=== PATIENT | female | born 1955 | race Caucasian/White ===

== ENCOUNTER 2019-07-14 17:13 | Emergency (ER) | payer OTHER ==
[~2019-07-14] VITALS: Ht 162.6 cm; Wt 70.3 kg
[2019-07-14 17:13] VITALS: BP 141/72
[2019-07-14] MEDS ORDERED: ACTICIN 5% CREA60 G1 TOP (18:35)
[2019-07-14] MEDS ORDERED: MAGIC MOUTHWASH SWISH&SPIT (18:35)
== END 2019-07-14 19:05 | disposition home or self-care (01) ==
LOC: ER 17:13
DX: B86 Scabies (principal)

== ENCOUNTER 2020-03-11 03:20 | Emergency (ER) | payer OTHER ==
[~2020-03-11] VITALS: Ht 152.4 cm; Wt 77.1 kg
[~2020-03-11 03:20] MED LIST: ACTICIN 5% CREA60 G1 TOP; MAGIC MOUTHWASH SWISH&SPIT
[2020-03-11] MEDS ORDERED: PILOCARPINE PO (03:35)
[2020-03-11] MEDS ORDERED: REQUIP 1 MG TABL1 M1 PO (03:39)
[2020-03-11] MEDS ORDERED: TRAZODONE 150150 M1 PO (03:39)
[2020-03-11] MEDS ORDERED: BACLOFEN 10MG T10 MG PO (03:39)
[2020-03-11] MEDS ORDERED: DULOXETINE HCL60 MG PO (03:40)
[2020-03-11] MEDS ORDERED: LEVO-T100 MCG PO (03:40)
[2020-03-11] MEDS ORDERED: ALPRAZOLAM1 MG PO (03:41)
[2020-03-11] MEDS ORDERED: COLACE100 MG PO (03:41)
[2020-03-11] MEDS ORDERED: ONDANSETRON ODT4 MG PO (03:41)
[2020-03-11] MEDS ORDERED: AMITRIPTYLINE H50 M2 PO (03:43)
[2020-03-11] MEDS ORDERED: OXYCONTIN60 MG PO (03:44)
[2020-03-11] MEDS ORDERED: METHOTREXATE (03:45)
[2020-03-11 06:52] VITALS: BP 114/52
== END 2020-03-11 06:52 | disposition home or self-care (01) ==
LOC: ER 03:20
DX: S82.852A Displaced trimalleolar fracture of left lower leg, initial encounter for closed fracture (principal); M06.9 Rheumatoid arthritis, unspecified; Z88.6 Allergy status to analgesic agent; X58.XXXA Exposure to other specified factors, initial encounter; Y93.89 Activity, other specified; Y92.89 Other specified places as the place of occurrence of the external cause; Y99.8 Other external cause status

== ENCOUNTER 2020-03-19 09:29 | Observation (INO) | payer OTHER ==
[~2020-03-19] VITALS: Ht 152.4 cm; Wt 77.1 kg
--- NOTE | ~2020-03-19 | O ---
[facility] [place] [address] OPERATIVE REPORT Name: ALEK WANG Room #: 150-5 [facility].#: [id number] Admission: 03/19/20 Attend Phys: Dashawn Best MD Discharge: Date of : 51 Report #: [id number] THIS REPORT FOR: cc: Sierra Hernandez,Dashawn Smith MD ~ CC: Sierra Best DATE OF SERVICE: 03/19/2020 PREOPERATIVE DIAGNOSIS: Left ankle trimalleolar fracture. POSTOPERATIVE DIAGNOSIS: Left ankle trimalleolar fracture. PROCEDURE: Left ankle open reduction and internal fixation of trimalleolar fracture. SURGEON: Dr. Dashawn Best. SOFTWARE PROGRAMMER: Regla Hawkins. ANESTHESIA: General. ESTIMATED BLOOD LOSS: Minimal. DRAINS: No drains. TOURNIQUET TIME: 30 minutes. DESCRIPTION OF PROCEDURE: The patient brought to the operating room where she was placed under general anesthesia. Once under adequate general anesthesia, her left lower extremity was prepped and draped in sterile manner. The extremity was elevated, exsanguinated, tourniquet placed 300 mmHg. A reduction maneuver was performed achieving reduction of the lateral malleolar fracture. The guidewire for the Arthrex intramedullary nail was then drilled for with an opening reamer through a distal stab wound incision utilizing fluoroscopy for guidance. The guidewire was then placed down the shaft of the fibula and the shaft reamer was then utilized and subsequently placed. The wire and drill were then removed and the intramedullary nail was then placed through 2 small stab incisions laterally. Fixation across the nail was achieved with 2 transverse locking screws. The proximal mechanism was then utilized for proximal fixation. The jig was then removed from the fibular nail. Utilizing fluoroscopy for guidance, then two 4.0 cannulated screws were placed across the medial malleolar fracture through 2 small stab incisions. Excellent fixation and alignment was achieved as verified under fluoroscopy. The wounds were then irrigated [address] [address] OPERATIVE REPORT Name: FELIPEALEKBHANU LIZARRAGA Room #: 150-5 [facility] M..#: [id number] Admission: 03/19/20 Attend Phys: Dashawn Best MD Discharge: Date of : 51 Report #: [id number] copiously and closed with 2-0 Vicryl in subcutaneous tissues and jj were used for the skin. The wounds were dressed with Xeroform, 4 x 4s, and sterile soft compressive dressing was placed. Tourniquet was let down at approximately 30 minutes. Toes were pink and warm with good capillary refill. Short leg cast was placed. There were no complications from the procedure. The patient tolerated the procedure well and went to the recovery room without incident. By: 1238 [id number] Dashawn Best MD /nt
[~2020-03-19 09:29] MED LIST changes: +ALBUTEROL2.5 MG/0.5 INH; +ALPRAZOLAM1 MG PO; +AMITRIPTYLINE H50 M2 PO; +ASA81BEC PO; +BACLOFEN 10MG T10 MG PO; +COLACE100 MG PO; +DULOXETINE HCL60 MG PO; +ESOMEPRAZOLE MA40 MG PO; +LEVO-T100 MCG PO; +LYRICA 50 MG50 MG PO; +METHOTREXATE PO; +NAPROSYN500 MG PO; +ONDANSETRON ODT4 MG PO; +OXYCONTIN60 MG PO; +PERCOCET 5-3251 EACH PO; +PILOCARPINE PO; +REQUIP 1 MG TABL1 M1 PO; +TRAZODONE 150150 M1 PO; +[UNRECOGNIZED DRUG - CODE] PO
[2020-03-19 10:22] LABS: HEMATOCRIT 32.9 % (37.0-47.0); HEMOGLOBIN 10.8 gm/dL (12.0-15.0); MCH 29.3 pg (26.0-34.0); MCHC 32.8 g/dL (28.0-37.0); MCV 89.3 fL (80.0-100.0); RBC 3.68 mil/uL (4.20-5.00); RDW 16.3 % (10.5-14.5); WBC 7.6 thou/uL (4.0-11.0)
[2020-03-19 12:41] VITALS: BP 111/60
[2020-03-19 14:00] VITALS: BP 109/56
[2020-03-19 14:22] VITALS: BP 116/58
[2020-03-19 15:17] VITALS: BP 97/48
--- NOTE | 2020-03-19 18:28 | NUR ---
PATIENT ADMITTED FROM OR, ORIF LEFT ANKLE. PATIENT ARRIVED ON THE UNIT AROUND 1400, SHE WAS VERY SLEEPY. PATIENT RECEIVED FENTANYL PRIOR TO ARRIVING ON THE UNIT IN OR. PATIENT HAS CAST TO LEFT LEG. NO PAIN WITH LEFT LEG, BUT C/O PAIN WITH BACK AREA. MORPHINE 5 MG IV GIVEN, PATIENT SLEEPING. PATIENT WOKE UP AND WAS ASKING FOR WATER, HER BELONGINGS, AND HER PHONE. PATIENT CONTINUE TO C/O PAIN TO BACK AREA, THIS RN GAVE OXYCODONE 7.5 MG X 2. THIS RN SPOKE WITH DAVID/SISTER AND GAVE HER UPDATE ON PATIENT STATUS. PATIENT IS OBSERVATION. WILL CONTINUE TO MONITOR.
[2020-03-19 19:22] VITALS: BP 108/54
[2020-03-20 00:15] VITALS: BP 101/59
--- NOTE | 2020-03-20 04:45 | NUR ---
ASSESSED AT START OF SHIFT PT A&OX4 FOR THIS SHIFT. EVNING MEDS GIVEN AND HOME MEDS RESTARTED. C/O PAIN IN RT LEG AND BACK PAIN MEDS GIVEN. UROSTOMY IN PLACE. FALL PREC IN PLACE AND WILL CONT TO MONITOR TILL EOS.
[2020-03-20 05:11] VITALS: BP 107/58
[2020-03-20 06:29] LABS: HEMATOCRIT 29.3 % (37.0-47.0); HEMOGLOBIN 9.5 gm/dL (12.0-15.0)
[2020-03-20 06:42] LABS: POTASSIUM 4.1 mmol/L (3.5-5.1)
[2020-03-20 07:29] VITALS: BP 121/64
--- NOTE | 2020-03-20 12:20 | NUR ---
PT ADMITTED RELATED TO LT ANKLE ORIF S/P TRIMALLEOLAR FX 03/11. CM REVIEWED CHART AND SPOKE WITH CARE TEAM. CM CALLED AND SPOKE WITH PT THIS DAY. PT APPEARED TO BE A&O X4. CM ROLE INTRODUCED. PT INDICATED SHE LIVES ALONE IN AN APARTMENT WITH NO STEPS. PT INDICATED SHE HAD USED A WC TO ASSIST WITH MOBILITY RN LIAISON. PT INDICATED SHE HAD HCBS THROUGH MEDICAID 4.5 HRS 5 DAYS A WEEK. PT INDICATED SHE PLANS TO RETURN HOME TODAY. PT INDICATED HER DTR CHECKS ON HER DAILY AFTER WOOR AND THAT ONE OF HER NEPHEWS IS GOING TO STAY WITH HER UPON DC. PT WOULD LIKE HH UPON DC. PT RESIDES IN [place]. REFERRAL SENT TO [facility]. AWAITING RESPONSE. CM TO FOLLOW INDICATED WITH ANTICPATED DC HOME THIS DAY.
[2020-03-20 13:10] VITALS: BP 121/64
[2020-03-20 13:11] VITALS: BP 121/64
--- NOTE | 2020-03-20 13:14 | NUR ---
FAXED REFERRAL TO [facility] SPOKE WITH ALAN IN INTAKE SHE RECEIVED REFERRAL AND CAN ACCEPT.
[2020-03-20 13:17] VITALS: BP 121/64
--- NOTE | 2020-03-20 14:36 | NUR ---
[facility] CAN ACCEPT PT. PT IS MEDICALLY STABLE TO DC HOME THIS DAY WIHT HH PT. NO OTHER CM INTERVENTION INDICATED. PT'S NEPHEWS TO TRANSPORT HOME. CASE CLOSED.
--- NOTE | 2020-03-20 15:20 | NUR ---
FAXED DC ORDERSS/SUMMARY TO [facility] SPOKE WITH ALAN IN INTAKE SHE RECEIVED ORDERS AND WILL NOTIFY PT TIME OF VISITS.
--- NOTE | 2020-03-20 15:47 | NUR ---
ASSUMED CARE OF THE PT AT 0700. PT IS UP WITH ASSIST X1 WITH WALKER AND GAIT BELT. PAIN CONTROLLED BY PAIN MEDS, SEE EMAR. L ANKLE CAST INTACT, CAP REFILL LESS THAN 5 SECONDS. PT WILL BE D/C'ING TO HOME WITH HH. R UPPERARM AND R FOREARM REMOVED. SCD ON R LEG. PT CAN TURN SELF. CALL LIGHT WITHIN REACH, BED IN THE LOWEST POSITION AND BED/ CHAIR ALARM ON. PT SIGNED D/C PAPERWORK AND RECEIVED RX'S. PT D/C'D TO HOME WITH ALL BELONGINGS
== END 2020-03-20 15:25 | disposition home health service (06) ==
LOC: OR 09:29 → TBA 09:34 → 4S 13:26 → OR 13:27 → 4S 03-20 15:25
PROVIDERS: ADMIT Orthopaedic Surgery Foot and Ankle Surgery
DX: S82.852A Displaced trimalleolar fracture of left lower leg, initial encounter for closed fracture (principal); F32.9 Major depressive disorder, single episode, unspecified; F41.9 Anxiety disorder, unspecified; G89.29 Other chronic pain; E03.9 Hypothyroidism, unspecified; K21.9 Gastro-esophageal reflux disease without esophagitis; Z86.73 Personal history of transient ischemic attack (TIA), and cerebral infarction without residual deficits; M19.90 Unspecified osteoarthritis, unspecified site; M06.9 Rheumatoid arthritis, unspecified; M79.7 Fibromyalgia; X58.XXXA Exposure to other specified factors, initial encounter; Y93.89 Activity, other specified; Y92.89 Other specified places as the place of occurrence of the external cause; Y99.8 Other external cause status
CPT/HCPCS: 50010; 50101; 50386; 51412; 56524; 56525; 57091; 57180; 5727; 57806; 57807; 57808; 57809; 57888; 57889; 62110; 62900; 70005

== ENCOUNTER 2020-04-22 18:42 | Inpatient (IN) | payer OTHER ==
[~2020-04-22] VITALS: Ht 152.4 cm; Wt 79.5 kg
[2020-04-22 18:43] VITALS: BP 130/56
[2020-04-22 19:04] LABS: ABSOLUTE NEUTROPHILS 11.1 thou/uL (1.4-8.2); BASOPHILS 0.2 % (0.0-2.0); EOSINOPHILS 0.5 % (0.0-3.0); HEMATOCRIT 34.7 % (37.0-47.0); HEMOGLOBIN 11.3 gm/dL (12.0-15.0); LYMPHOCYTES 5.6 % (24.0-44.0); MCH 28.3 pg (26.0-34.0); MCHC 32.5 g/dL (28.0-37.0); MONOCYTES 10.8 % (1.0-8.0); POLYS 82.9 % (36.0-66.0); RBC 3.99 mil/uL (4.20-5.00); RDW 16.7 % (10.5-14.5); WBC 13.4 thou/uL (4.0-11.0)
[2020-04-22 19:14] LABS: ANION GAP 4 mmol/L (7-16); BUN 32 mg/dL (7-18); CALCIUM 10.1 mg/dL (8.5-10.1); CHLORIDE 105 mmol/L (98-107); CO2 29 mmol/L (21-32); CREATININE 1.1 mg/dL (0.6-1.0); GLUCOSE 107 mg/dL (74-106); POTASSIUM 5.9 mmol/L (3.5-5.1); SODIUM 138 mmol/L (136-145)
[2020-04-22 19:23] LABS: PLATELET COUNT 142 thou/uL (150-400)
[2020-04-22 19:25] LABS: ALBUMIN 3.3 g/dL (3.4-5.0); SGOT 53 U/L (15-37); SGPT 34 U/L (30-65); TOTAL BILIRUBIN 0.8 mg/dL (0.2-1.0); TOTAL PROTEIN 7.6 g/dL (6.4-8.2); TROPONIN-I <0.06 ng/mL (<0.06)
[2020-04-22 19:28] LABS: URINE BILIRUBIN NEGATIVE (Negative); URINE BLOOD TRACE (Negative); URINE CLARITY CLEAR; URINE COLOR YELLOW; URINE GLUCOSE-RANDOM* NEGATIVE (Negative); URINE KETONES NEGATIVE (Negative); URINE NITRITE-REFLEX NEGATIVE (Negative); URINE PROTEIN (DIPSTICK) TRACE (Negative); URINE UROBILINOGEN 0.2 E.U./dl (0.2-1.0)
[2020-04-22 19:34] LABS: URINE LEUKOCYTES-REFLEX 1+ (Negative)
[2020-04-22 19:38] LABS: AMP/METHAMP Negative (Negative); BARBITURATES Negative (Negative); BENZODIAZEPINES POSITIVE (Negative); COCAINE Negative (Negative); METHADONE Negative (Negative); OPIATES POSITIVE (Negative); PCP Negative (Negative)
[2020-04-22 19:38] LABS: BE(vivo) -0.3 mmol/L (-2 to +3); PO2 93.2 mmHg (80.0-100.0); sO2 95.7 % (92.0-98.0)
[2020-04-22 19:39] LABS: pH 7.249 (7.360-7.450)
[2020-04-22 19:40] LABS: PCO2 65.4 mmHg (35.0-45.0)
[2020-04-22 19:45] LABS: CASTS None Seen /LPF (None Seen); CRYSTALS None Seen /LPF (None Seen); SQUAMOUS 0-3 Few /LPF (0-3); URINE WBC-REFLEX 6-15 Few /HPF (0-5)
[2020-04-22 19:46] LABS: URINE RBC 0-2 Rare /HPF (0-2)
[2020-04-22 19:52] LABS: INR 1.1; PROTIME 11.4 Seconds (9.3-11.4)
[2020-04-22 21:03] VITALS: BP 128/60
[2020-04-22 21:47] VITALS: BP 143/83
[2020-04-22 22:02] VITALS: BP 113/91
[2020-04-22 22:32] VITALS: BP 112/64
[2020-04-22 22:47] VITALS: BP 99/63
[2020-04-22 23:12] LABS: BE(vivo) -4.4 mmol/L (-2 to +3); HCO3 22.7 mmol/L (22.0-26.0); PCO2 51.5 mmHg (35.0-45.0); PO2 71.7 mmHg (80.0-100.0)
[2020-04-22 23:14] LABS: pH 7.263 (7.360-7.450)
[2020-04-23] VITALS (28 sets, daily range): BP systolic 101–170; BP diastolic 44–86
[2020-04-23 01:23] LABS: BE(vivo) 0.1 mmol/L (-2 to +3); PCO2 54.9 mmHg (35.0-45.0); PO2 94.4 mmHg (80.0-100.0); pH 7.309 (7.360-7.450); sO2 96.5 % (92.0-98.0)
[2020-04-23 05:28] LABS: HEMOGLOBIN 9.8 gm/dL (12.0-15.0); MCH 27.8 pg (26.0-34.0); MCHC 31.5 g/dL (28.0-37.0); MCV 88.4 fL (80.0-100.0); RBC 3.51 mil/uL (4.20-5.00); WBC 9.3 thou/uL (4.0-11.0)
[2020-04-23 05:42] LABS: CALCIUM 8.4 mg/dL (8.5-10.1); MAGNESIUM 1.6 mg/dL (1.8-2.4)
[2020-04-23 05:45] LABS: POTASSIUM 4.7 mmol/L (3.5-5.1)
--- NOTE | 2020-04-23 06:51 | NUR ---
PT PROGRESSING TOWARD GOALS. REMAINS ON BIPAP. ABG IMPROVED. DR DEMPSEY CALLED RESULTS DURING NOC. PT MORE ALERT, ORIENTED. TEMP NORMAL 97.9 AX. IVF INFUSING. GOOD UO PER CONDUIT. SPOKE WITH BOTH PATIENTS SISTER AND DAUGHTER. CONT PLAN OF CARE. SEE [facility] FOR ASSESSMENT
--- NOTE | 2020-04-23 08:38 | EKG ---
[facility] [place] [address] ELECTROCARDIOGRAM REPORT Name: ALEK WANG Room #: 236-P ADM IN M.R.#: [id number] Admission: 04/22/20 Attend Phys: Shin Shearer MD Discharge: Date of : 51 Report #: [id number] THIS REPORT FOR: cc: Sierra Hernandez Christine L. DO Lundgren, Craig H. MD [facility] ~ THIS REPORT FOR: //name// [facility] ED Test Date: 2020-04-22 Test Time: 19:02:23 Pat Name: ALEK WANG Department: Room: 236 Gender: F Job Site Supervisor: lito : 1955 Requested By: Fidelina Pond Order Number: [id number] MD: Korey Willoughby Measurements Intervals [place] Rate: 101 P: 45 AL: 168 QRS: 28 QRSD: 98 T: 30 QT: 353 QTc: 458 Interpretive Statements Sinus tachycardia Otherwise normal tracing No previous ECG available for comparison Electronically Signed On 04-23-2020 8:36:49 CDT by Korey Willoughby [email or web address] <ELECTRONICALLY SIGNED> By: Korey Willoughby MD, [facility] 04/23/20 0836 [id number] Korey Willoughby MD, [facility] /EPI
--- NOTE | 2020-04-23 09:30 | NUR ---
chart review. cm consult. unable to visit with tyesha at this time rt on bipap. covid pending. per chart pt was here in february with ankle fx with orif. lives in apartment alone. daughter and nephew check on her. has wheel chair. [facility] in past. received community based service from [place] medicaid. will cont following as needed for dc needs.
--- NOTE | 2020-04-23 10:26 | NUR ---
Pt reporting pain in left hand and back pain. Asking for pain medication. States "I don't want to go through withdrawel again". Call placed to Dr Blair to request medications. Dr Blair will order medications.
[2020-04-23 10:34] LABS: INR 1.1; PROTIME 11.4 Seconds (9.3-11.4)
--- NOTE | 2020-04-23 15:30 | NUR ---
Call placed to pt's sister Carlee (contact list) to inform of negative COVID results per her request to be notified when test result came back. Sister voicing concern that the patient is receiving inadequate amount of pain medication to keep her from going through withdrawel (pt has chronic pain issues). Sister wants MD to be aware of previous issue of withdrawel.
--- NOTE | 2020-04-23 19:00 | NUR ---
Pt continues to report pain left hand/wrist. Left wrist near base of thumb is swollen and painful. No redness or bruising. Pt unaware of any injury. Dr Phillips was in ICU and informed and ordered xray of left wrist. Pt started on regular diet but reported difficulty eating due to dry mouth syndrome and lack of her usual medications. Minimal pain relief obtained today with medication. Remains tachycardic. Positive blood culture was reported to Dr Hsu. Report to RN assuming care. Continue enhanced precautions per Dr Hsu.
[2020-04-24] VITALS (13 sets, daily range): BP systolic 134–157; BP diastolic 72–95
--- NOTE | 2020-04-24 09:59 | NUR ---
Spoke with Physician regarding patient pain management. Family and patient requesting pain management consult. Reviewed medications that patient has ordered and home dose with provider. Passed along information of family request for the patient to not have Fentanyl. Physician stated he will call and speak with family. IVF Dc'd per provider orders.
--- NOTE | 2020-04-24 10:05 | NUR ---
PT ON PHONE TO FAMILY, SHE REQUESTED ITEMS FROM HOME FOR HER ILEOCONDUIT CARE. PT AND FAMILY MEMBER REFUSING TO HAVE FENTANYL PATCH EVEN THOUGH SLOW RELEASE OF PAIN MEDICATION THAT WILL NOT SIGNIFICANTLY AFFECT BP. IV PATCH PLACED, THEN REMOVED WITHIN 10 SECONDS. PT ANXIOUS, TACHYPNEIC.
--- NOTE | 2020-04-24 11:25 | NUR ---
TRANSFERRED TO TELE #361 PER BED WITH REPORT CLERK, WITH ASSISTANCE OF PACHECO AND RN.
--- NOTE | 2020-04-24 13:43 | NUR ---
1210 PT TRANSFERED FROM ICU, TO 361, PT ALERT AND ORIENTED X4, DENIES ANY CHEST PAIN, NAUSEA AND VOMITING. PT COMPLAINS OF LEFT THUMB AND LFT ANKLE PAIN PT IS ON TELE, ILEUL CONDUIT IN PLACE , INTACT AND PATENT. PT DENIES ANY NEEDS MICHAEL, CALL LIGHT AND TABLE IN REACH. BED AT LOWEST LEVEL WITH ALARM ON.
--- NOTE | 2020-04-24 15:49 | NUR ---
CHIO reviewed chart and spoke with attending physician. Pt transferred to from ICU earlier today. Pt remains in Enhanced Isolation. Pt's first test was negative. Repeat test is pending. SW has attempted to reach pt in her room via phone. Pt is currently on service with [facility] and has Medicaid HCBS in home care 4.5 hrs/day for 5 days/week. Will need therapy evals when pt is able to participate. CHIO is following to assist as needed with discharge planning.
--- NOTE | 2020-04-24 23:59 | NUR ---
DR. CECI BROWN ROUNDED ON PT THIS EVENING. ALL COVID ISOLATION HAS BEEN DC'D. FOLLOWING POC.
[2020-04-25 04:06] VITALS: BP 110/62
--- NOTE | 2020-04-25 05:59 | NUR ---
ASSUMED CARE FOR PT AT 1845. PT HAD HIGH LEVEL OF ANXIETY WHICH STEMS FROM NOT HAVING CORRECT MEDICATIONS THAT SHE TAKES AT HOME. AFTER GETTING ALL IN ORDER AND GETTING PATIENTS PAIN UNDER CONTROL HER ANXIETY DECREASED GREATLY. PT ALSO REQUESTED TO RESTART PILOCARPINE FOR XEROSTOMIA. POC WITH IVPB ANTIBIOTICS. PT STILL ON 6L NC AND RECEIVING BREATHING TX. PT STATES THAT SHE WANTS TO GET UP TO THE CHAIR TODAY.
[2020-04-25 07:37] VITALS: BP 131/70
[2020-04-25 08:03] VITALS: BP 131/70
[2020-04-25 11:15] VITALS: BP 142/86
--- NOTE | 2020-04-25 12:54 | NUR ---
ASSUMED CARE AT 0700, PT ALERT AND ORIENTED X4, ANXIOUS AT TIMES. PT DENIES CHEST PAIN, NAUSEA AND VOMITING. COMPLAINS OF LEFT THUMB PAIN WHICH SHE IS BEING MEDICATED FOR PER ORDER. PT IS ON 4L OF OXYGEN, AND O2 SAT IS WNL. NO SIGNS OF DISTRESS NOTED. PT GOT UP TO CHAIR FOR A COUPLE OF HOURS. CALL LIGHT AND TABLE IN REACH. BED AT LOWEST LEVEL WITH ALARM ON. THUMB STABILIZER IN PLACE.
--- NOTE | 2020-04-25 14:18 | NUR ---
CHIO reviewed chart and spoke with nursing and attending physician. Pt is slowly progressing towards goals for discharge. Therapy ordered to evaluate pt for discharge needs. SW attempted to call pt in room. No answer. CHIO spoke with pt's sister, Carlee, regarding discharge plan. Lengthy discussion regarding discharge plan. Pt's family is able to provide 24 hour care at home if needed. Carlee states that attending physician mentioned 5N acute rehab. SW explained need for rehab dx and tolerance for 3 hours of therapy. Pt's cell phone number ([phone]) provided to SW. SW spoke with pt via phone. Pt states she would prefer to go home but will see how she does with therapy. Pt is currently on service with [facility]. CHIO is following to assist as needed with discharge planning.
[2020-04-25 16:59] VITALS: BP 125/78
--- NOTE | 2020-04-25 18:10 | NUR ---
OSTOMY NURSE- ASKED TO SEE PATIENT FOR PROBLEMS WITH UROSTOMY POUCH ADHERENCE & LEAKING. 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 SHE REPORTS PROBLEMS RECENTLY WITH WEIGHT GAIN, MORE ROUNDED ABDOMEN AND POUCH NOT ADHERING WELL. SHE USES AND HAS SOME OF HER OWN ALESHA 8487 PRE-CUT 1 3/8 INCH CONVEX UROSTOMY POUCHES. SHE RECENTLY STARTED USING MARATHON SKIN PREP AND A SMALL PIECE OF THIN HYDROCOLLOID LATERAL TO HER STOMA, AT THE SUGGESTION OF HER HOME HEALTH NURSE - WITH IMPROVEMENT IN POUCH ADHERENCE. SHE RELUCTANTLY AGREED TO CHANGE POUCH NOW, SHE TYPICALLY CHANGES IN THE MORNING. POUCH LAST CHANGED OVER A WEEK AGO. POUCH WAS STILL INTACT, BUT STARTING TO LEAK UNDER BARRIER ALONG LATERAL AND INFERIOR BORDER. STOMA PINK, MOIST, PROTRUDES SLIGHTLY AND APPROXIMATELY 1 1/8 INCHES. PERISTOMAL SKIN COMPLETELY INTACT AND PINK. ASSISTED PATIENT TO CLEANSE WITH PLAIN WATER - SHE USES IVORY SOAP & WATER AT HOME, STRONGLY DISCOURAGED DUE TO ALKALINE NATURE OF SOAP AND LEAVING FILM PREVENTING ADHERENCE. APPLIED MARATHON AND THIN HYDROCOLLOID. REINFORCED HOLDING PRESSURE OVER POUCH AFTER APPLYING. POUCH CONNECTED TO BEDSIDE DRAINAGE. PATIENT HAS ADDITIONAL SUPPLIES AT BEDSIDE. NURSES TO ASSIST WITH ROUTINE OSTOMY CARE, OSTOMY NURSE TO FOLLOW-UP PRN.
[2020-04-25 19:25] VITALS: BP 152/82
--- NOTE | 2020-04-25 23:49 | NUR ---
PT RESTING IN LOUNGE CHAIR. TWO PERSON ASSIST BACK TO BED WITH BOOT ON LLE. PT STATING SHE WISHES TO RETURN HOME TO COMFORT OF OWN CHAIR TO SLEEP IN. 02 PER NC 4L. COUGH, LUNGS WITH WHEEZE. IVF INTACT. PT REQUESTED SNACK AND PROVIDED. PT NOT WEARING BRACE ON THUMB L. PT DISCUSSED CHANGE IN PAIN MEDS TODAY AND HOPING FOR INCREASED RELIEF FOR CHRONIC BACK AND ANKLE PAIN. PT RECEIVED LOVENOX, BED ALARM ON.
[2020-04-26 04:20] VITALS: BP 109/58
[2020-04-26 07:59] VITALS: BP 149/79
--- NOTE | 2020-04-26 11:35 | NUR ---
Patient refused to walk with Respiratory stating she had a broken ankle. Was able or willing to try. Spoke with GÓMEZ Angulo.
--- NOTE | 2020-04-26 11:52 | HC ---
[facility] [place] [address] CONSULTATION Name: ALEK WANG Room #: 361-P ADM IN M.R.#: [id number] Admission: 04/22/20 Attend Phys: Nicholas Blair Discharge: Date of : 53 Report #: [id number] THIS REPORT FOR: cc: Sierra Hernandez,Rob Ivy MD ~ CC: Sierra Blair HISTORY OF PRESENT ILLNESS: This 64-year-old female is admitted with multiple medical problems and I believe has a clinical diagnosis of sepsis with positive blood cultures. She has a number of general medical problems. I am asked to see her with regard to the left wrist, hand and thumb swelling and pain. Upon my evaluation, her history is somewhat difficult and confusing. At first, she states she has only had hand symptoms since she was admitted to the hospital several days ago. On further discussion, she notes she has had chronic problems with the left knee and at rest and has been seen by multiple physicians including proof reader in the past; however, she states she has not had x-rays nor any other significant diagnostic studies regarding these chronic symptoms. She notes that she had an ankle fracture in the past few months and then was using a walker for balance, which seemed to aggravate the left wrist and hand discomfort. Those symptoms have advanced over the past week or two and at the time of her initial hospital admission, she states, however, that her hand and wrist symptoms have actually improved somewhat over the past couple of days. Objectively, she is somewhat frail and slender. She seems to be generally comfortable, resting, in bed. She does, however, complain of ongoing left hand and wrist pain. Objectively, there is mild generalized edema and some tenderness about the radial aspect of the left wrist and thumb. The thumb is slightly shortened and mildly angulated consistent with some bony disruption at the CMC joint. She has satisfactory movement of the other digits with some generalized edema. The findings are not so severe as to suggest a major abscess. It is difficult to rule out infection versus aggressive synovitis in this area of the hand, however. X-rays of the left hand reveal rather striking a loss of bone involving the trapezium trapezoid and base of the first metacarpal as well as the distal pole of the scaphoid. These findings certainly suggest a rather chronic osteolysis process. They actually have the appearance of previous surgical resection with the patient assures me that she has never had any surgery involving the hand. Findings would suggest there has been some gradual chronic osteolysis process. I have discussed this at some length with the patient. It is possible that there may be a deep soft tissue infection. I think further evaluation with MRI study would be helpful in assessing for possible abscess and fluid collection. At this point, we will try to protect the wrist and hand in a simple thumb spica splint. She notes she was already fitted for a splint 1-2 weeks [place] [address] CONSULTATION Name: ALEK WANG Room #: 361-P [facility] IN M.R.#: [id number] Admission: 04/22/20 Attend Phys: Nicholas Blair Discharge: Date of : 51 Report #: [id number] was at home, which suggests this is a more chronic problem. We do not have those splints available, so we will try to get a new simple thumb spica splint now for comfort. We will see what the MRI study shows. I have also asked for an evaluation opinion by my partner, ____. <ELECTRONICALLY SIGNED> By: Rob Paiz MD 04/26/20 1152 0832 0848 Rob Paiz MD /nt
[2020-04-26 12:10] VITALS: BP 129/79
[2020-04-26 15:44] VITALS: BP 129/79
--- NOTE | 2020-04-26 16:21 | NUR ---
CHIO reviewed chart and spoke with nursing and attending physician. Pt is progressing towards goals for discharge. 5N did evaluate pt. Pt is too high level for admission to inpt acute rehab. Recommendation made for pt to return home with services. CHIO spoke with pt via phone to discuss discharge plan. Pt states she refused to do the walking exercise with RT to determine home O2 needs. SW explained need for study to determine her O2 requirements while at rest and when ambulating. Pt verbalized understanding. CHIO discussed DME companies with pt. No preference voiced. CHIO confirmed pt's home address and phone number. Pt agreeable with plan to discharge home tomorrow with services. CHIO spoke with pt's sister, Carlee, to discuss discharge plan as well. Pt's niece will provide transportation home tomorrow. Carlee is agreeable with discharge plan. Carlee states she spoke with Patient Experience Coordinator to discuss her concerns. environmental planner to fax info to [facility] for review. CHIO notified liaison of weekend discharge. CHIO faxed referral and room air sat of 87% to [facility] for review. Pt will not need a rest/exercise oximetry at this time. CHIO notified [facility] liaison of new Home O2 referral. Portable tank to be delivered to pt's room today. CHIO updated pt's nurse and attending physician. Will need a script for home O2. Script will need to be faxed to [facility] when available. Finalized discharge orders/summary will need to be faxed to and [facility] when available. Contact info for [facility] and placed in pt's discharge summary. No further CHIO needs identified at this time, but is available to assist should needs arise. [facility] -- [facility]--
[2020-04-26 16:33] VITALS: BP 134/81
--- NOTE | 2020-04-26 16:54 | NUR ---
ASSUMED CARE OF PT AT 0700. PT AOX4 MILD ANXIETY, STILL REQUIRING O2. UP W/ 1 ASSIST. OCCASIONAL COUGH. IV ABX INFUSING PER ORDER. DOWNGRADED TO MED/SURG. O2 TANK DELIVERED TO ROOM. ANTICIPATE D/C HOME TOMORROW.
[2020-04-26 19:16] VITALS: BP 142/64
--- NOTE | 2020-04-26 19:48 | NUR ---
PT RETURNED TO BED FROM [facility] TRANSFERED SELF. NWB LLE, HAS BOOT R/T PREVIOUS ANKLE SURGERY. O2 PER NC, LUNGS WITH CRACKLES, SOA WITH TALKING AND EXERTION. COUGH NON PRODUCTIVE. PT HAD BM. PT INFORMED OF NEW ANTIBIOTIC ORDER. PT DIET CHANGED TO DAY TO PUREED. ILEOCONDUIT TO DD INTACT. PT VERBALIZING DESIRE TO DC IN AM. PT VERBALIZING INCREASE IN ANXIETY. PT CALLS FOR ASSISTANCE FOR RESTROOM AND TRANSFERS.
--- NOTE | 2020-04-26 19:54 | NUR ---
PATIENT SEEN BY DR. REAL THIS DATE FOR REHAB CONSULT. PATIENT HAS ALREADY BE DISCHAGED FROM PHYSICAL THERAPY. PATIENT DOES NOT MEET CRITERIA FOR ACUTE REHAB STAY. ANTICIPATE PATIENT WILL D/C TO HOME. EXPLOSIVE SPECIALIST INFORMED. THANK YOU FOR THIS REFERRAL.
--- NOTE | 2020-04-27 01:15 | NUR ---
PT CHANGED HER ILEOCONDUIT DRAINAGE BAG, SHE STATED IT WAS LEAKING.
[2020-04-27 04:24] VITALS: BP 118/50
[2020-04-27 07:23] VITALS: BP 139/68
[2020-04-27 16:07] VITALS: BP 155/83
--- NOTE | 2020-04-27 18:44 | NUR ---
NO NEW CHANGES. REMAINS ON 3L NC. ANXIOUS. NO D/C PLANS TODAY DUE TO WORSENING XRAY.
[2020-04-27 20:00] VITALS: BP 152/94
[2020-04-27 20:08] LABS: ADENOVIRUS Negative (Negative); INFLUENZA A Negative (Negative); INFLUENZA B Negative (Negative); METAPNEUMOVIRUS Negative (Negative); PARAINFLUENZA 1 Negative (Negative); PARAINFLUENZA 2 Negative (Negative); PARAINFLUENZA 3 Negative (Negative); RHINOVIRUS Negative (Negative); RSV A Negative (Negative)
--- NOTE | 2020-04-27 23:41 | NUR ---
ASSESSMENT: PT REMAIN ALERT AND ORIENT TIMES FOUR. UP IN CHAIR AT THE CHANGE OF SHIFT. PIVOT TO BED WITH SBA. PT IS FEBRILE. WITH TEMP OF 100.3. OXYCONDONE GIVEN FOR PAIN IN BACK AND LEFT ANKLE. IJ ON LEFT PATENT AND SALINE LOCKED. ALPRAZOLAM BENZONATE AND GUAIFENESIN GIVEN EARLY IN THE SHIFT. PT WILL BE TRANSFERING TO ROOM 460. REPORT GIVEN TO DIRK MAGAÑA. PER MONITOR. CONTINUOUS PULSE OX ORDERED. SPUTUM PENDING. WILL CONTINUE TO MONITOR.
[2020-04-28 00:16] VITALS: BP 137/70
--- NOTE | 2020-04-28 00:37 | NUR ---
PATIENT WAS TRANSFERRED FROM ROOM 361 AT 2359 VIA BED WITH TWO NURSES. REPORT RECEIVED AND PATIENT ORIENTED TO ROOM. RT GAVE TREATMENT AND WILL PUT PATIENT ON CONTINUOUS PULSE OX. RESTING QUIETLY. TELEMETRY PATIENT. WILL MONITOR.
[2020-04-28 05:05] VITALS: BP 141/84
--- NOTE | 2020-04-28 05:17 | NUR ---
PATIENT ALERT AND ORIENTED X4. MEDICATED FOR PAIN X1 AT TIME OF NOTE AND COUGH MEDICATION. 02NC WITH SOME SOA. RT TREATMENTS. MONITORING TEMPERATURE. PATIENT WORKING ON SPUTUM SAMPLE. POSSIBLE D/C PENDING TEMP. TELE WITH TACHY. RESTING QUIETLY. WILL MONITOR.
[2020-04-28 07:23] VITALS: BP 120/74
[2020-04-28 15:25] VITALS: BP 138/58
--- NOTE | 2020-04-28 17:29 | NUR ---
PT ASSESSED AT START OF SHIFT. STATES SHE'S MUCH BETTER AND WANTING TO GO HOME. HAS CHRONIC BACK PAIN AND NEEDS TO CHANGE FROM BED TO CHAIR SEVERAL TIMES DAILY. FAMILY BROUGHT PT'S W/C FROM HOME WHICH HAS HELPED. NOT ABLE TO FIND MUCH THAT SHE CAN EAT W/O IT BOTHERING HER MOUTH. SISTER CALLED TO CHECK ON PT AND STATED SHE HAS ARRANGED FOR CONTINOUS HOME CARE PROVIDED BY FAMILY SO THAT PT MAY GO HOME INSTEAD OF REHAB.
[2020-04-28 19:00] VITALS: BP 152/79
--- NOTE | 2020-04-29 04:31 | NUR ---
PATIENT ALERT AND ORIENTED X4. UP IN WHEELCHAIR AT BEGINNING OF SHIFT. RETURNED TO BED WITH ONE ASSIST. MEDICATED FOR PAIN WITH BOTH SCHEDULED AND PRN DURING THE NIGHT. RT TREATMENTS PER ORDER. SPUTUM SAMPLE SENT TO LAB. CONTINUES TO BE TACHY AT TIMES. ABLE TO SLEEP FOR SHORT PERIODS OF TIME. BREATHIING LABORED AFTER TREATMENTS. MEDICATED FOR COUGH WITH FAIR TO GOOD RESULTS. 02NC 3L. WILL MONITOR.
[2020-04-29 05:20] VITALS: BP 132/83
[2020-04-29 08:00] VITALS: BP 143/58
--- NOTE | 2020-04-29 13:36 | NUR ---
CARE TEAM INDICATED THAT PT IS PROGRESSING TOWARD GOAL OF DISCHARGING HOME. PT WAS ASSESSED BY ST THIS DAY AND RECOMMENDED DIET IS MECHSFT THIN. PT QUALIFIED FOR HOME O2 AND PROTABLE TANK [facility]. PT HAD BEEN ACCPTED FOR HH SERVICES [facility]ON DC [facility]. SISTER INDIATED THE HER ADULT GRANDCHILDREN WILL BE STAYING WITH PT UPON DC SO SHE WOULD HAVE 24/7 SUPPORT AND ASSISTANCE UPON DC. PT EXPRESSING DESIRE TO DC HOME. CM SPOKE WITH PT'S SISTER DAVID AND SHE EXPRESSED THAT PT IS VERY ANXIOUS TO DISCHARGE HOME DUE TO CARE CONSERNS RELATED TO FOOD, NOT BEING ABLE TO TAKE HOME VITAMINS, AND NOT BEING COMFORTABLE IN BED OR CHAIR DUE TO HER BACK. IT'S PT BIRTHDAY AND HER SISTER WAS BRINGING WATERMELON, PROTINE BARS, AND A WOPPER FROM [employer]. CM NOTIFIED PT'S NURSE AND ALSO INDICATED THAT FAMILY WAS ASKING ABOUT LOW AIR LOSS MATTESS. CM NOTIFIED PHYSICIAN THAT PT AND SISTER WERE WANTING EXPLAINATION TO WHY PT NEEDS CONTINUED HOSPITALIZATION. CM TO FOLLOW INDICATED WITH DC PLANNING.
--- NOTE | 2020-04-29 13:56 | NUR ---
Assess for length of stay. admit with weakness, fever, acute respiratory failure. Hx Muscular Dystrophy. Pt complains on chronic mouth pain/burning and aware of foods that trigger worse. Using magic wash. States today is her birthday. ST has advanced diet from puree to mech altered chopped and pt enjoying Whopper from [employer] at time of visit. States will drink some Ensure, 1x per day. Wt up 10 lb from February. Pt hoping to be discharged today. Food preferences identified. Low nutrition risk
[2020-04-29 15:00] VITALS: BP 153/66
[2020-04-29 19:55] VITALS: BP 143/73
--- NOTE | 2020-04-29 20:21 | NUR ---
Assumed pt care this am, pain is managed with medication partial relief noted. Anxiety level would fluctuate through out the day, pt statted today is her birthday. Would transfer from the bed to her wheelchair then to her recliner. FAmily brought a present in a small brown bag with some protein bars and a snack. Pt sis mention that she feel her mouth is burning and requested for "magic mouthwash" . ON 3liters of O2 via NC. Pt requested to speak to her hospitalist (Dr. Blair), informed. Also informed of the request for the low airloss matress. POC followed, with no signs of distress, endorsed to the night nurse.
[2020-04-30 04:30] VITALS: BP 147/83
--- NOTE | 2020-04-30 07:48 | NUR ---
PROGRESS PT VERY ANXIOUS O2 AT 3 LITERS SATS IN MID 90'S MOST OF SHIFT, THIS AM PT REPORTED HER NOSE WAS ALL STUFFED UP AND SHE COULDN'T BREATHE THROUGH IT O2 SATS DOWN TO 74% CANULA PLACED IN MOUTH PT INSTRUCTED TO TAKE SLOW DEEP BREATHES WITH HER MOUTH SATS UP TO 95% RT NOTIFIED, DAY SHIFT TO CALL FOR NASAL SPRAY XANAX AND PAIN MEDS GIVEN TO HELP PT RELAX. CONTINUE TO MONITOR.
[2020-04-30 08:05] VITALS: BP 134/83
--- NOTE | 2020-04-30 10:31 | NUR ---
OSTOMY CARE; pt requested assist w/ changing urostomy appliance, on for 5 days. new pouch zach convex 1 03/29' applied w/ deyvi rings, stoma pink viable slightly budded, peristomal skin intact, pt applies small piece hydrocolloid to area right side of stoma due to skin indentation, pouch connected to new drainage bag, clear yellow urine present, supplies at bs, pt states she changes pouch q5days, will cont to follow recommendations cont ostomy care as pt has at home w/ use of zach convex appliances and deyvi rings medical staff services coordinator aware
[2020-04-30 11:52] VITALS: BP 144/93
--- NOTE | 2020-04-30 15:20 | NUR ---
PHYSICIAN INDICATED THAT PT'S O2 NEEDS INCREASED FROM 3L O 6L AND THAT HE HAD RECONSULTED 5N HE THOUGH PT WOULD BENEFIT FROM ACUTE REHAB STAY. PT HAD DISCHARGED PT INDICATING THAT SHE WOULD BE SAFE TO DC HOME ONCE MEDICALLY STABLE. CM FOLLOWING REGARDING DC PLANNING. PT CAN BE SET UP WITH [facility] AND [place] [phone] UPON DC.
[2020-04-30 15:59] VITALS: BP 131/82
--- NOTE | 2020-04-30 17:11 | NUR ---
Assessment completed.Pt in and out of room for test today.Pt in bed resting with 02 at 6lnc at the beginning of the shift.Pt was anxious and needy calls out nearly every hour.Emotional support and reassurance given.Requested for air loss bed pump and nasal spray.Dr Blair notified on round and pt request granted.Dr Arnold later round on pt and additional order noted.Ostomy nurse replaced ileoconduit bag today.Pt wanted to transfered to rehab but that might be tomorrow.Pt in bed resting at present.Will continue to monitor.
[2020-04-30 20:12] VITALS: BP 135/71
[2020-05-01 04:59] LABS: CALCIUM 8.1 mg/dL (8.5-10.1); CREATININE 0.6 mg/dL (0.6-1.0); MAGNESIUM 1.5 mg/dL (1.8-2.4)
[2020-05-01 05:14] LABS: HEMATOCRIT 26.5 % (37.0-47.0); HEMOGLOBIN 8.6 gm/dL (12.0-15.0); MCH 27.7 pg (26.0-34.0); MCHC 32.5 g/dL (28.0-37.0); MCV 85.1 fL (80.0-100.0); RBC 3.11 mil/uL (4.20-5.00); WBC 12.1 thou/uL (4.0-11.0)
[2020-05-01 05:16] LABS: POTASSIUM 2.9 mmol/L (3.5-5.1)
[2020-05-01 05:22] VITALS: BP 131/81
[2020-05-01 07:49] VITALS: BP 105/59
--- NOTE | 2020-05-01 08:00 | NUR ---
PROGRESS PT A/O X4 UP WITH SBA, REPORTS PAIN TO BACK LEGS FEET TAKING OXYCONTIN AND OXYCODONE FOR PAIN WITH SOME EFFECT. PT REPORTS PAIN IN MOUTH USING MAGIC MOUTHWASH. POTASSIUM 2.6 AND OLIVIA [place] EMERGENCY VEHICLE OPERATIONS INSTRUCTOR 40 MEQ KCL AND 2 GRAMS OF MAGNESIUM ORDERED AND GIVEN. RT TREATMENTS CONTINUE C/O NASAL STUFFINESS AND NARES CLEANSED WITH SALINE WITH SOME RELIEF. ILEOSTOMY INTACT DRAINING YELLOW URINE.
--- NOTE | 2020-05-01 15:02 | NUR ---
5N INDICATED THAT THEY COULD POTENTIALLY ACCEPT PT ON 4W THIS DAY OR TOMOROW AND THEN BRING HER UP ONCE A BED OPENS UP BUT PHYSICIAN INDICATED PT MAY BE ABLE TO DC HOME WITH [facility] AND [facility]. CM TO FOLLOW INDICATED WITH DC PLANNING.
[2020-05-01 15:08] LABS: RSV B Negative (Negative)
[2020-05-01 17:29] VITALS: BP 126/70
[2020-05-01 19:06] VITALS: BP 149/84
[2020-05-01 23:25] VITALS: BP 138/82
--- NOTE | 2020-05-02 03:57 | NUR ---
ASSUMED PT CARE AROUND 1930. AXOX4, ANXIOUS. VSS. NO S/S ACUTE DISTRESS NOTED OR REPORTED AT THIS TIME. WILL CONT TO MONITOR FOR ANY CHANGES IN CONDITION.
[2020-05-02 06:36] LABS: HEMOGLOBIN 8.4 gm/dL (12.0-15.0); MCH 27.7 pg (26.0-34.0); MCHC 32.4 g/dL (28.0-37.0); MCV 85.4 fL (80.0-100.0); RBC 3.05 mil/uL (4.20-5.00); WBC 11.3 thou/uL (4.0-11.0)
[2020-05-02 06:51] LABS: CREATININE 0.6 mg/dL (0.6-1.0); PHOSPHORUS 3.4 mg/dL (2.5-4.9); POTASSIUM 3.3 mmol/L (3.5-5.1)
[2020-05-02 08:00] VITALS: BP 140/52
[2020-05-02] MEDS ORDERED: AUGMENTIN600 MG/5 M PO (09:30)
[2020-05-02] MEDS ORDERED: IPRAT-ALBUT 0.5-3 ML INH (09:30)
[2020-05-02] MEDS ORDERED: XANAX 0.5 MG0.5 MG PO (09:31)
[2020-05-02] MEDS ORDERED: FLONASE 0.05%50 MCG NASAL (09:31)
[2020-05-02 10:04] VITALS: BP 129/79
--- NOTE | 2020-05-02 10:07 | NUR ---
OSTOMY CARE urostomy pouch intact, no leakage, reviewed care, good understanding, has supplies, home health to assist prn ostomy care, plan dc today staff genetic counselor aware
--- NOTE | 2020-05-02 13:16 | NUR ---
PT IS AOX4, VSS, NO DISTRESS NOTED. PT IS DISCHARGING HOME WITH HH. PT RECEIVED DISCHARGE INSTRUCTIONS FROM NURSE, WAITING FOR TRANSPORTATION PHYSICAL DESIGN ENGINEER TIME. WILL CONTINUE TO MONITOR.
--- NOTE | 2020-05-02 14:33 | NUR ---
TEAM INDICATED PT PS MEDICALLY STABLE TO DC HOME THIS DAY. PT IS TO RESUME SERVICES WITH [facility] HEALTH ORDERS FAXED. PT IS TO DC HOME WITH [facility] HOME O2. PT HAS PORTABLE TANK TO TAKE WITH HER UPON DC AND KNOWS O CONTACT [facility] UPON HER RETURN HOME FOR THEM TO DELIVER HER HOME SET UP INCLUDING HUMIDIFICATION. PT'S NEPHEW IN LAW WILL BE PROVIDING TRANSPORT HOME THIS DAY AROUND 1445. PT AND SISTER ARE ALL AWARE AND AGREEABLE. NO OTHER CM INTERVENTION INDICATED. CASE CLOSED.
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
== END 2020-05-02 15:52 | disposition home health service (06) | DRG 871 ==
LOC: ER 18:42 → EROBS 19:52 → ICU 19:52 → 3W 04-24 11:22 → 4W 04-28 00:11
PROVIDERS: Internal Medicine; Nurse Practitioner Family; Specialist; Student in an Organized Health Care Education/Training Program; ADMIT Hospitalist; ATTEND Hospitalist
PROC: B548ZZA Ultrasonography of Superior Vena Cava, Guidance (ICD-10-PCS; principal; 2020-04-22)
PROC: 02HV33Z Insertion of Infusion Device into Superior Vena Cava, Percutaneous Approach (ICD-10-PCS; principal; 2020-04-22)
PROC: 5A09357 Assistance with Respiratory Ventilation, Less than 24 Consecutive Hours, Continuous Positive Airway Pressure (ICD-10-PCS; principal; 2020-04-22)
DX: A41.9 Sepsis, unspecified organism (principal); J96.02 Acute respiratory failure with hypercapnia; J18.9 Pneumonia, unspecified organism; J96.01 Acute respiratory failure with hypoxia; G93.40 Encephalopathy, unspecified; N39.0 Urinary tract infection, site not specified; F11.20 Opioid dependence, uncomplicated; J93.9 Pneumothorax, unspecified; Z20.828 Contact with and (suspected) exposure to other viral communicable diseases; M06.9 Rheumatoid arthritis, unspecified; Z96.698 Presence of other orthopedic joint implants; J45.909 Unspecified asthma, uncomplicated; F32.9 Major depressive disorder, single episode, unspecified; F41.9 Anxiety disorder, unspecified; E03.9 Hypothyroidism, unspecified; E87.5 Hyperkalemia; G89.4 Chronic pain syndrome; M19.90 Unspecified osteoarthritis, unspecified site; K21.9 Gastro-esophageal reflux disease without esophagitis; R65.20 Severe sepsis without septic shock; M79.7 Fibromyalgia; I10 Essential (primary) hypertension; G71.00 Muscular dystrophy, unspecified; B96.1 Klebsiella pneumoniae [K. pneumoniae] as the cause of diseases classified elsewhere; B95.2 Enterococcus as the cause of diseases classified elsewhere; D51.0 Vitamin B12 deficiency anemia due to intrinsic factor deficiency; Z90.710 Acquired absence of both cervix and uterus; Z90.49 Acquired absence of other specified parts of digestive tract; Z86.73 Personal history of transient ischemic attack (TIA), and cerebral infarction without residual deficits; Z88.8 Allergy status to other drugs, medicaments and biological substances; Z91.02 Food additives allergy status; Z82.61 Family history of arthritis; Z82.3 Family history of stroke; Z82.49 Family history of ischemic heart disease and other diseases of the circulatory system; Z83.3 Family history of diabetes mellitus; Z03.818 Encounter for observation for suspected exposure to other biological agents ruled out
CPT/HCPCS: 10045; 10078; 10203; 10779; 10879

== ENCOUNTER 2020-06-01 11:59 | Emergency (ER) | payer OTHER ==
[~2020-06-01] VITALS: Ht 152.4 cm; Wt 84.6 kg
[~2020-06-01 11:59] MED LIST changes: +AUGMENTIN600 MG/5 M PO; +FLONASE 0.05%50 MCG NASAL; +IPRAT-ALBUT 0.5-3 ML INH; +XANAX 0.5 MG0.5 MG PO
[2020-06-01 15:18] LABS: ABSOLUTE NEUTROPHILS 6.1 thou/uL (1.4-8.2); BASOPHILS 0.5 % (0.0-2.0); EOSINOPHILS 9.4 % (0.0-3.0); HEMATOCRIT 28.7 % (37.0-47.0); HEMOGLOBIN 9.5 gm/dL (12.0-15.0); LYMPHOCYTES 15.7 % (24.0-44.0); MCH 27.1 pg (26.0-34.0); MCV 81.9 fL (80.0-100.0); MONOCYTES 8.7 % (1.0-8.0); PLATELET COUNT 214 thou/uL (150-400); POLYS 65.7 % (36.0-66.0); RDW 16.9 % (10.5-14.5); WBC 9.4 thou/uL (4.0-11.0)
[2020-06-01 15:30] LABS: CREATININE 0.9 mg/dL (0.6-1.0); POTASSIUM 5.1 mmol/L (3.5-5.1)
[2020-06-01] MEDS ORDERED: BACTRIM DS TAB1 EACH PO (16:16)
[2020-06-01] MEDS ORDERED: NORCO 10-325 T1 EACH PO (16:16)
[2020-06-01 16:30] VITALS: BP 129/66
== END 2020-06-01 16:30 | disposition home or self-care (01) ==
LOC: ER 11:59
PROVIDERS: Nurse Practitioner Family
DX: L03.116 Cellulitis of left lower limb (principal); J45.909 Unspecified asthma, uncomplicated; E03.9 Hypothyroidism, unspecified; K21.9 Gastro-esophageal reflux disease without esophagitis; Z79.899 Other long term (current) drug therapy; Z91.018 Allergy to other foods; Z90.710 Acquired absence of both cervix and uterus; Z88.8 Allergy status to other drugs, medicaments and biological substances

== ENCOUNTER 2020-06-03 15:59 | Inpatient (IN) | payer OTHER ==
[~2020-06-03] VITALS: Ht 152.4 cm; Wt 71.7 kg
[~2020-06-03 15:59] MED LIST changes: +BACTRIM DS TAB1 EACH PO; +NORCO 10-325 T1 EACH PO
[2020-06-03 16:00] VITALS: BP 177/90
[2020-06-03 16:46] LABS: BE(vivo) -6.4 mmol/L (-2 to +3); PCO2 37.3 mmHg (35.0-45.0); pH 7.325 (7.360-7.450); sO2 98.2 % (92.0-98.0)
[2020-06-03 18:17] LABS: HEMATOCRIT 31.4 % (37.0-47.0); MCH 26.6 pg (26.0-34.0); MCHC 31.9 g/dL (28.0-37.0); MCV 83.3 fL (80.0-100.0); RBC 3.77 mil/uL (4.20-5.00); RDW 17.3 % (10.5-14.5)
[2020-06-03 18:26] LABS: ANION GAP 3 mmol/L (7-16); BUN 20 mg/dL (7-18); CALCIUM 9.4 mg/dL (8.5-10.1); CHLORIDE 99 mmol/L (98-107); CO2 31 mmol/L (21-32); GLUCOSE 76 mg/dL (74-106); POTASSIUM 5.4 mmol/L (3.5-5.1); SODIUM 133 mmol/L (136-145)
[2020-06-03 18:36] LABS: ALBUMIN 3.1 g/dL (3.4-5.0); DIRECT BILIRUBIN < 0.1 mg/dL (<0.1-0.2); SGOT 27 U/L (15-37); SGPT 16 U/L (30-65); TOTAL BILIRUBIN 0.2 mg/dL (0.2-1.0); TOTAL PROTEIN 7.3 g/dL (6.4-8.2); TROPONIN-I <0.06 ng/mL (<0.06)
[2020-06-03 18:41] LABS: URINE BILIRUBIN NEGATIVE (Negative); URINE BLOOD NEGATIVE (Negative); URINE CLARITY CLEAR; URINE COLOR YELLOW; URINE GLUCOSE-RANDOM* NEGATIVE (Negative); URINE KETONES NEGATIVE (Negative); URINE LEUKOCYTES-REFLEX 1+ (Negative); URINE NITRITE-REFLEX NEGATIVE (Negative); URINE PROTEIN (DIPSTICK) NEGATIVE (Negative); URINE UROBILINOGEN 0.2 E.U./dl (0.2-1.0)
[2020-06-03 18:45] LABS: ABSOLUTE NEUTROPHILS 6.1 thou/uL (1.4-8.2); LARGE PLATELETS RARE; PLATELET COUNT 234 thou/uL (150-400)
[2020-06-03 18:48] LABS: CASTS None Seen /LPF (None Seen); CRYSTALS None Seen /LPF (None Seen); SQUAMOUS 0-3 Few /LPF (0-3); URINE RBC None Seen /HPF (0-2); URINE WBC-REFLEX 0-5 Rare /HPF (0-5); YEAST-REFLEX Present (None Seen)
[2020-06-03 18:49] LABS: BACTERIA-REFLEX 1-9 Few /HPF (None Seen)
[2020-06-03 19:03] LABS: AMP/METHAMP Negative (Negative); BARBITURATES Negative (Negative); BENZODIAZEPINES POSITIVE (Negative); COCAINE Negative (Negative); METHADONE Negative (Negative); OPIATES POSITIVE (Negative); PCP Negative (Negative)
[2020-06-03 20:38] VITALS: BP 126/66
[2020-06-03 20:47] VITALS: BP 119/70
[2020-06-03 21:09] VITALS: BP 123/57
[2020-06-04 05:45] LABS: HEMATOCRIT 29.5 % (37.0-47.0); HEMOGLOBIN 9.2 gm/dL (12.0-15.0); MCH 26.5 pg (26.0-34.0); MCHC 31.3 g/dL (28.0-37.0); MCV 84.4 fL (80.0-100.0); RBC 3.49 mil/uL (4.20-5.00); RDW 17.5 % (10.5-14.5); WBC 6.3 thou/uL (4.0-11.0)
[2020-06-04 06:16] LABS: CALCIUM 8.5 mg/dL (8.5-10.1); CREATININE 0.8 mg/dL (0.6-1.0); MAGNESIUM 1.8 mg/dL (1.8-2.4)
[2020-06-04 06:37] LABS: POTASSIUM 4.3 mmol/L (3.5-5.1)
--- NOTE | 2020-06-04 07:36 | NUR ---
new admission for dizziness and cellulitis on ble. ble are red and warm to touch, no drainage noted. patient denied dizziness this shift. pain controlled this shift. patient has a urestomy, stoma is pink and moist no s/s of infection.fall precaution in place. patient in bed asleep at this time breathing regular and unlaboured.
--- NOTE | 2020-06-04 07:52 | EKG ---
[facility] [place] [address] ELECTROCARDIOGRAM REPORT Name: ALEK WANG Room #: 455-P ADM IN M.R.#: [id number] Admission: 06/03/20 Attend Phys: Nicholas Blair Discharge: Date of : 51 Report #: [id number] THIS REPORT FOR: cc: Sierra Hernandze Christine L. DO Lundgren, Craig H. MD [facility] ~ THIS REPORT FOR: //name// [facility] ED Test Date: 2020-06-03 Test Time: 16:13:25 Pat Name: ALEK WANG Department: Room: [facility] Gender: F Habitat Conservation Planner: CRISTINO : 1955 Requested By: Caden Carreon Order Number: [id number] MD: Korey Willoughby Measurements Intervals [place] Rate: 103 P: 39 NV: 125 QRS: 30 QRSD: 92 T: 44 QT: 327 QTc: 428 Interpretive Statements Sinus tachycardia Otherwise normal tracing Compared to ECG 04/22/2020 19:02:23 No significant changes Electronically Signed On 06-04-2020 7:52:47 CDT by Korey Willoughby [email or web address] <ELECTRONICALLY SIGNED> By: Korey Willoughby MD, [facility] 06/04/20 0752 1613 1613 Korey Willoughby MD, [facility] /EPI
[2020-06-04 08:03] VITALS: BP 106/48
[2020-06-04 14:50] VITALS: BP 114/53
[2020-06-04 21:20] VITALS: BP 132/69
--- NOTE | 2020-06-05 04:14 | NUR ---
ASSUMED CARE OF PT AT 1900HRS. PT IS AOX4 AND LETS NEEDS BE KNAOWN. FALL PRECAUTION IN PLACE. ABX TREATMENT CONTINUED. O2 VIA NC CONTINUED AT 2L. PT HAD ONE EMISIS EPISODE THIS SHIFT. PT REPORTED PAIN AND WAS TREATED WITH PRNS WITH LITTLE SUCCESS. PT DID NOT SLEEP MUCH THIS SHIFT. PT RUNNING SR ON TELE. VSS ADN NO S/S OF ACUTE DISTRESS. WILL CONTINUE TO MONITOR.
[2020-06-05 06:26] LABS: ALBUMIN 2.5 g/dL (3.4-5.0); CALCIUM 8.9 mg/dL (8.5-10.1); CREATININE 0.7 mg/dL (0.6-1.0); POTASSIUM 4.4 mmol/L (3.5-5.1)
[2020-06-05 07:18] VITALS: BP 143/75
--- NOTE | 2020-06-05 10:13 | NUR ---
PT ADMITTED RELATED TO BLE CELLULITIS AND DIZZENESS. CM REVIEWED CHART. CM MET WITH PT AT BEDSIDE THIS DAY. PT IS A&O X4. CM ROLE INTRODUCED. PT INDICATED SHE LIVES IN AN APARTMENT ALONE WITH NO STEPS TO ENTER AND NO STEPS INSIDE. PT INDICATED SHE HAS A FWW, WC, AND HOME O2 THROUGH [facility]. PT INDICATED SHE HAD BEEN ON SERVICES WITH [facility] HH BALING MACHINE TENDER AND THAT SHE WOULD LIKE TO RESUME SERVICES WITH THEM UPON DC. PT INDICATED SHE HAS HCBS 4.5 HRS A DAY 5 DAYS A WEEK. PT IS AWARE THAT SHE IS LIKELY MEDICALLY STABLE TO DC HOME THIS DAY AND RESUME HH SERVICES. PT INDICATED SHE HAS NEARLY 24/7 SUPERVISION AND ASSISTANCE AT HER APARTMENT. PT INDICATED SHE WOULD NOTIFY HER SISTER AND HER NIECE MARY LOU DUMONT . MARY LOU TO PROVIDE TRANSPORT HOME. SHE WILL BRING WC AND PORTABLE O2.
[2020-06-05 10:17] VITALS: BP 143/75
[2020-06-05] MEDS ORDERED: AUGMENTIN 875-1 EACH PO (10:21)
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
[2020-06-05 15:09] VITALS: BP 130/65
--- NOTE | 2020-06-06 08:31 | HC ---
[facility] [place] [address] [address] CONSULTATION Name: ALEK WANG Room #: 455-P [facility] IN M.R.#: [id number] Admission: 06/03/20 Attend Phys: Nicholas Blair Discharge: 06/05/20 Date of : 51 Report #: [id number] THIS REPORT FOR: cc: Sierra Hernandez,Hermilo Garcia MD ~ CC: Sierra Blair DATE OF SERVICE: 06/04/2020 WOUND CARE CONSULTATION PERSONAL PHYSICIAN: Not on staff. CHIEF COMPLAINT: Bilateral cellulitis of lower extremities. HISTORY OF PRESENT ILLNESS: Briefly, this is a 65-year-old white female who states over the past week, she has been dealing with cellulitis in bilateral lower extremities, left greater than right. The patient states that she first noticed she was having redness and swelling in her left leg approximately a week ago and then over the past several days developed swelling and soreness and redness in her right leg. She was having increasing pain as well as associated generalized weakness, which prompted her to come to the Emergency Department to be admitted. The patient back in February 2020 suffered a trimalleolar fracture of her left ankle, underwent open reduction and internal fixation of the fracture. The patient had a somewhat prolonged hospital course afterwards including pneumonia, however, was COVID negative. The patient states she has no actual open wounds on her either lower extremity. The patient denies any other associated wounds at this time. The patient states the biggest concern is pain and swelling in both lower extremities, left greater than right. PAST MEDICAL HISTORY: Significant for depression; anxiety; chronic back pain; fibromyalgia; rheumatoid arthritis; muscular dystrophy; asthma; chronic respiratory failure, on chronic 2 liters oxygen by nasal cannula, previous TIA and gastroesophageal reflux disease. PAST SURGICAL HISTORY: The patient has had multiple back surgeries, history of previous bladder removal secondary to neurogenic bladder, the left foot surgery secondary to trimalleolar fracture. CURRENT MEDICATIONS: Multiple, I reviewed the patient's medication list. DRUG ALLERGIES: FENTANYL. SOCIAL HISTORY: The patient denies alcohol or drug use. [facility] [address] [place] [address] CONSULTATION Name: ALEK WANG Room #: 455-P [facility] IN ..#: [id number] Admission: 06/03/20 Attend Phys: Nicholas Blair Discharge: 06/05/20 Date of : 51 Report #: [id number] FAMILY HISTORY: Not pertinent to current medical condition. REVIEW OF SYSTEMS: CONSTITUTIONAL: The patient denies fevers or chills. NEUROLOGIC: The patient has overall generalized weakness, but no isolated weakness in arms or legs. EYES: No complaints. ENT: No complaints. CARDIAC: The patient complains of bilateral lower extremity edema, left greater than right, but no chest pain or palpitation. RESPIRATORY: The patient has chronic cough and oxygen usage, but denies actual increased shortness of breath. GASTROINTESTINAL: The patient denies nausea, vomiting or diarrhea. GENITOURINARY: The patient denies urgency or frequency, but once she has a urostomy secondary to bladder removal. MUSCULOSKELETAL: The patient has chronic back pain. SKIN: The patient has erythema of bilateral lower extremities, left greater than right, but no open wounds. PHYSICAL EXAMINATION: VITAL SIGNS: Stable. The patient is afebrile. GENERAL: This is an alert and oriented x 3, pleasant white female who is in mild distress secondary to pain. HEENT: Normocephalic, atraumatic. Mucous membranes are dry. Pupils are round. Sclerae white. NECK: Supple, nontender. LUNGS: Clear. HEART: Regular. ABDOMEN: Soft, nontender. Urostomy bag in the right lower quadrant. EXTREMITIES: The patient moves all extremities without difficulty. Bilateral lower extremities have 1+ edema with increased erythema, warmth and tenderness, left greater than right. Distal pulses are 2+ bilaterally. Bilateral heels are intact. There are no open wounds on the bilateral lower extremities. NEUROLOGIC: Cranial nerves 2-12 are grossly intact. Motor and sensory grossly intact. LABORATORY DATA: White count 6.3, hemoglobin 9.2. Sed rate 58. BUN 15, creatinine 0.8, albumin 3.1. Lower extremity venous Doppler shows no signs of deep venous thrombosis. X-ray of the left ankle shows postoperative changes, but no signs of osteomyelitis. IMPRESSION: 1. Bilateral lower extremity cellulitis, left greater than right with no open ulcerations. 2. Status post trimalleolar fracture with open reduction and internal fixation [address] [address] CONSULTATION Name: ALEK WANG Room #: 455-P [facility] IN M.R.#: [id number] Admission: 06/03/20 Attend Phys: Nicholas Blair Discharge: 06/05/20 Date of : 51 Report #: [id number] of the left ankle. 3. Chronic back pain. 4. Fibromyalgia. 5. Generalized debility. 6. Protein-calorie malnutrition -- moderate albumin 3.1. PLAN: At this time, we will start the patient on triamcinolone cream to bilateral lower extremities with Tubigrip for compression. We will have her elevate her legs as much as possible. We will make sure we maximize the patient's oral protein supplementation for healing. We will utilize physical and occupational therapy for strengthening. Continue all other current medications including IV antibiotics. I will continue to follow the patient. I appreciate ability to consult. <ELECTRONICALLY SIGNED> By: Hermilo Martinez MD 06/06/20 0831 1327 1352 Hermilo Martinez MD /nt
== END 2020-06-05 17:49 | disposition home health service (06) | DRG 871 ==
LOC: ER 15:59 → EROBS 19:19 → 4W 19:19
PROVIDERS: Emergency Medicine; Nurse Practitioner Family; ADMIT Hospitalist; ATTEND Hospitalist
DX: A41.9 Sepsis, unspecified organism (principal); G93.41 Metabolic encephalopathy; J96.22 Acute and chronic respiratory failure with hypercapnia; L03.116 Cellulitis of left lower limb; E44.0 Moderate protein-calorie malnutrition; N17.9 Acute kidney failure, unspecified; L03.115 Cellulitis of right lower limb; M06.9 Rheumatoid arthritis, unspecified; Z96.698 Presence of other orthopedic joint implants; K21.9 Gastro-esophageal reflux disease without esophagitis; J45.909 Unspecified asthma, uncomplicated; F32.9 Major depressive disorder, single episode, unspecified; F41.9 Anxiety disorder, unspecified; E03.9 Hypothyroidism, unspecified; G89.29 Other chronic pain; M54.9 Dorsalgia, unspecified; G47.00 Insomnia, unspecified; M19.90 Unspecified osteoarthritis, unspecified site; M79.7 Fibromyalgia; D51.0 Vitamin B12 deficiency anemia due to intrinsic factor deficiency; K59.00 Constipation, unspecified; Z90.710 Acquired absence of both cervix and uterus; Z86.73 Personal history of transient ischemic attack (TIA), and cerebral infarction without residual deficits; Z88.8 Allergy status to other drugs, medicaments and biological substances; Z91.02 Food additives allergy status; Z82.61 Family history of arthritis; Z82.3 Family history of stroke; Z83.3 Family history of diabetes mellitus; Z82.49 Family history of ischemic heart disease and other diseases of the circulatory system; Z68.30 Body mass index [BMI] 30.0-30.9, adult; Z87.81 Personal history of (healed) traumatic fracture
CPT/HCPCS: 10045

== ENCOUNTER → 2020-07-10 | Outpatient (CLI) | payer OTHER ==
[~2020-07-10] MED LIST changes: +AUGMENTIN 875-1 EACH PO
== END ==
LOC: RAD 12:31
PROVIDERS: ATTEND Internal Medicine Pulmonary Disease
DX: R91.8 Other nonspecific abnormal finding of lung field (principal); J93.9 Pneumothorax, unspecified

== ENCOUNTER 2021-07-09 11:25 | Emergency (ER) | payer OTHER ==
[~2021-07-09] VITALS: Ht 152.4 cm; Wt 74.8 kg
[2021-07-09 12:01] LABS: BASOPHILS 0.6 % (0.0-2.0); EOSINOPHILS 2.5 % (0.0-3.0); HEMATOCRIT 35.6 % (37.0-47.0); HEMOGLOBIN 11.9 gm/dL (12.0-15.0); LYMPHOCYTES 12.5 % (24.0-44.0); MCH 31.4 pg (26.0-34.0); MCHC 33.4 g/dL (28.0-37.0); MONOCYTES 10.6 % (1.0-8.0); PLATELET COUNT 157 thou/uL (150-400); POLYS 73.8 % (36.0-66.0); RBC 3.79 mil/uL (4.20-5.00); RDW 13.9 % (10.5-14.5); WBC 8.2 thou/uL (4.0-11.0)
--- NOTE | 2021-07-09 12:37 | EKG ---
[address] [address] ELECTROCARDIOGRAM REPORT Name: ALEK WANG Room #: [facility]#: [id number] Admission: 07/09/21 Attend Phys: Discharge: Date of : 51 Report #: [id number] [facility] ED Test Date: 2021-07-09 Test Time: 11:26:56 Pat Name: ALEK WANG Department: Room: Gender: F Employment Interviewer: : 1955 Requested By: Rodo Ho Order Number: [id number] MD: Hakeem Brambila Measurements Intervals [place] Rate: 103 P: 47 TN: 134 QRS: 74 QRSD: 95 T: 29 QT: 327 QTc: 428 Interpretive Statements Sinus tachycardia Compared to ECG 06/03/2020 16:13:25 No significant changes Electronically Signed On 07-09-2021 12:37:08 CDT by Hakeem Brambila [email or web address] <ELECTRONICALLY SIGNED> By: Hakeem Brambila MD, [facility] 07/09/21 1237 1126 1126 Hakeem Brambila MD, FACC /EPI
[2021-07-09 12:42] LABS: URINE BILIRUBIN NEGATIVE (Negative); URINE BLOOD TRACE (Negative); URINE CLARITY CLEAR; URINE COLOR YELLOW; URINE GLUCOSE-RANDOM* NEGATIVE (Negative); URINE KETONES NEGATIVE (Negative); URINE LEUKOCYTES-REFLEX 2+ (Negative); URINE NITRITE-REFLEX POSITIVE (Negative); URINE PROTEIN (DIPSTICK) NEGATIVE (Negative); URINE UROBILINOGEN 0.2 E.U./dl (0.2-1.0)
[2021-07-09 12:54] LABS: BACTERIA-REFLEX >30 Many /HPF (None Seen); CASTS None Seen /LPF (None Seen); CRYSTALS None Seen /LPF (None Seen); SQUAMOUS None Seen /LPF (0-3); URINE RBC 1-2 Rare /HPF (NONE SEEN); URINE WBC-REFLEX 6-15 Few /HPF (0-5)
[2021-07-09 13:38] LABS: CALCIUM 9.1 mg/dL (8.5-10.1); CREATININE 0.9 mg/dL (0.6-1.0); POTASSIUM 4.1 mmol/L (3.5-5.1)
[2021-07-09 13:44] LABS: ALBUMIN 3.1 g/dL (3.4-5.0); TOTAL BILIRUBIN 0.4 mg/dL (0.2-1.0); TOTAL PROTEIN 7.1 g/dL (6.4-8.2)
[2021-07-09] MEDS ORDERED: CEPHALEXIN 250250 M1 PO (14:11)
[2021-07-09 14:24] VITALS: BP 132/75
== END 2021-07-09 14:20 | disposition home or self-care (01) ==
LOC: ER 11:25
PROVIDERS: Student in an Organized Health Care Education/Training Program
DX: N39.0 Urinary tract infection, site not specified (principal); Z20.822 Contact with and (suspected) exposure to COVID-19; R06.02 Shortness of breath; M79.7 Fibromyalgia; K21.9 Gastro-esophageal reflux disease without esophagitis; J45.909 Unspecified asthma, uncomplicated; F41.9 Anxiety disorder, unspecified; F32.9 Major depressive disorder, single episode, unspecified; E03.9 Hypothyroidism, unspecified; Z98.890 Other specified postprocedural states; Z90.710 Acquired absence of both cervix and uterus; Z79.891 Long term (current) use of opiate analgesic; Z79.51 Long term (current) use of inhaled steroids; Z79.1 Long term (current) use of non-steroidal anti-inflammatories (NSAID); Z79.899 Other long term (current) drug therapy; Z88.8 Allergy status to other drugs, medicaments and biological substances; Z91.018 Allergy to other foods

== ENCOUNTER 2021-09-01 23:26 | Inpatient (IN) | payer OTHER ==
[~2021-09-01] VITALS: Ht 152.4 cm; Wt 85.3 kg
[~2021-09-01 23:26] MED LIST changes: +CEPHALEXIN 250250 M1 PO
[2021-09-01 23:29] VITALS: BP 79/42
[2021-09-01 23:59] LABS: HEMATOCRIT 22.1 % (37.0-47.0); HEMOGLOBIN 7.1 gm/dL (12.0-15.0); MCH 30.5 pg (26.0-34.0); MCV 95.4 fL (80.0-100.0); PLATELET COUNT 94 thou/uL (150-400); RBC 2.31 mil/uL (4.20-5.00); RDW 14.3 % (10.5-14.5); WBC 9.1 thou/uL (4.0-11.0)
[2021-09-02] VITALS (40 sets, daily range): BP systolic 63–160; BP diastolic 40–116
[2021-09-02] LABS: CALCIUM 8.6 mg/dL (8.5-10.1); CREATININE 1.7 mg/dL (0.6-1.0); POTASSIUM 4.3 mmol/L (3.5-5.1)
[2021-09-02 00:10] LABS: ALBUMIN 2.9 g/dL (3.4-5.0); TOTAL BILIRUBIN 0.7 mg/dL (0.2-1.0); TOTAL PROTEIN 6.7 g/dL (6.4-8.2)
[2021-09-02] MEDS ORDERED: AMITRIPTYLINE H50 M2 PO (00:15)
[2021-09-02] MEDS ORDERED: PILOCARPINE PO (00:16)
[2021-09-02] MEDS ORDERED: DULOXETINE HCL60 MG PO (00:16)
[2021-09-02] MEDS ORDERED: NAPROSYN500 MG PO (00:17)
[2021-09-02] MEDS ORDERED: PLAQUENIL200 MG PO (00:17)
[2021-09-02] MEDS ORDERED: ZOFRAN ODT4 MG PO (00:18)
[2021-09-02] MEDS ORDERED: NYSTATIN15 G1 TOP (00:18)
[2021-09-02] MEDS ORDERED: REQUIP 1 MG TABL1 M1 PO (00:19)
[2021-09-02] MEDS ORDERED: BREO ELLIPTA 21 EACH INH (00:20)
[2021-09-02] MEDS ORDERED: XANAX1 MG PO (00:20)
[2021-09-02] MEDS ORDERED: PREGABALIN50 MG PO (00:21)
[2021-09-02] MEDS ORDERED: MS CONTIN 60 MG60 MG PO (00:21)
[2021-09-02] MEDS ORDERED: FOLIC ACID1 MG PO (00:22)
[2021-09-02 00:54] LABS: ABSOLUTE NEUTROPHILS 7.4 thou/uL (1.4-8.2)
[2021-09-02 00:55] LABS: ANISOCYTOSIS 1+; PLATELET ESTIMATE DECREASED; POIKILOCYTOSIS 1+
[2021-09-02 03:02] LABS: URINE BILIRUBIN NEGATIVE (Negative); URINE BLOOD 3+ (Negative); URINE CLARITY SL CLOUDY; URINE COLOR YELLOW; URINE GLUCOSE-RANDOM* NEGATIVE (Negative); URINE KETONES TRACE (Negative); URINE NITRITE-REFLEX NEGATIVE (Negative); URINE PROTEIN (DIPSTICK) 1+ (Negative); URINE UROBILINOGEN 0.2 E.U./dl (0.2-1.0)
[2021-09-02 03:04] LABS: URINE LEUKOCYTES-REFLEX 2+ (Negative)
[2021-09-02 04:22] LABS: CASTS None Seen /LPF (None Seen); CRYSTALS None Seen /LPF (None Seen); MUCUS 4-6 Moderate strn/LPF (None Seen); SQUAMOUS 0-3 Few /LPF (0-3); URINE RBC >20 Many /HPF (NONE SEEN); WBC CLUMPS Few (None Seen)
--- NOTE | 2021-09-02 05:07 | NUR ---
Pt arrived from ED at 0425 with 1 upc infusing per right subclavian portacath. MOnitor sinus rhythm, sat 96% on 3 L (which is pt's home dose of O2). Pt taking ice chips without nausea. Pt alert and orient x4.
--- NOTE | 2021-09-02 05:09 | NUR ---
Pt states her advanced directive stated Do Not Resuscitate becauses she is planning on going on hospice, but she currently wants to be full code for this hospitalization.
[2021-09-02 05:58] LABS: HCO3 25.1 mmol/L (22.0-26.0); PCO2 53.2 mmHg (35.0-45.0); PO2 98.8 mmHg (80.0-100.0); sO2 96.7 % (92.0-98.0)
[2021-09-02 06:02] LABS: pH 7.292 (7.360-7.450)
--- NOTE | 2021-09-02 06:42 | NUR ---
BLOOD TRANSFUSION ENDED AT 0600; UNABLE TO DOCUMENT ON ED TRANSFUSION INTERVENTION; AT 0605 TEMP WAS 97.8 F PER AXILLARY TEMP, PULSE 77, RR 10, SAT 100%, BP 103/52 MAP 70.
[2021-09-02 06:58] LABS: HEMATOCRIT 32.7 % (37.0-47.0); MCHC 32.3 g/dL (28.0-37.0); MCV 92.8 fL (80.0-100.0); RBC 3.52 mil/uL (4.20-5.00); RDW 14.2 % (10.5-14.5)
[2021-09-02 07:20] LABS: HEMOGLOBIN 10.6 gm/dL (12.0-15.0)
[2021-09-02 07:22] LABS: CALCIUM 8.4 mg/dL (8.5-10.1); CREATININE 1.3 mg/dL (0.6-1.0); POTASSIUM 4.7 mmol/L (3.5-5.1)
[2021-09-02 07:26] LABS: % SATURATION 6 % (20-39); IRON 12 ug/dL (50-170); TIBC 211 ug/dL (250-450)
--- NOTE | 2021-09-02 07:30 | EKG ---
[address] [address] ELECTROCARDIOGRAM REPORT Name: FELIPEALEK ELHAM Room #: 247-P ADM IN M.R.#: [id number] Admission: 09/02/21 Attend Phys: Judd Shah MD Discharge: Date of : 51 Report #: [id number] ED Test Date: 2021-09-02 Test Time: 00:36:22 Pat Name: ALEK WANG Department: Room: [facility] Gender: F Chief Gauger: hesham : 1955 Requested By: Rob Aguilar Order Number: [id number] : Hakeem Brambila Measurements Intervals [place] Rate: 90 P: 53 IA: 143 QRS: 42 QRSD: 95 T: 32 QT: 351 QTc: 430 Interpretive Statements Sinus rhythm Compared to ECG 07/09/2021 11:26:56 Sinus tachycardia no longer present Electronically Signed On 09-02-2021 7:30:23 CDT by Hakeem Brambila [email or web address] <ELECTRONICALLY SIGNED> By: Hakeem Brambila MD, [facility] 09/02/21 0730 0036 0036 Hakeem Brambila MD, FACC /EPI
[2021-09-02 09:19] LABS: FOLIC ACID 28.4 ng/mL (8.6-58.9)
--- NOTE | 2021-09-02 12:37 | NUR ---
66 year old female admitted through the ED with HCAP, Anemia, Hypotension, FAYE, Encephalopathy (noted possible narcotic induced with MS Continue of 60 BID), Thrombocytopenia, Asthma, RA, Muscular Dystrophy and history of colon resection and neurogenic bladder s/p bladder. The patient does have an Advanced Directive of Do Not Resuscitate; however the patient has voiced she wished to be a full code for this hospitalization. ID and Gi have been consulted as patient was in deed of a transfusion from ED to the floor as Hgb had been 7.1 on admission. The patients lists her niece Salud Qiu at [phone] and Daughter Nory Laureano at [phone] as next of kin and contacts. Patient last seen by CM in house on 06-05-20 and discharged home with [facility] at this time. Spoke with daughter Nory who states her mother is moving towards palliative care and Salud Qiu has been involved with care. Salud takes her to all her appointments and cares for the patient in her independent apartment. Patient was seen yesterday by family and then reported not feeling well and called 911 and came to the hospital. Salud and her family provider much of the patient's daily living needs and notes that patient does well in her independent department with their assistance. Salud is coming up to visit the patient after work around 6PM. Re-introduced role of CM and explained as care stabilizes medically; therapy evaluations will be placed to determine needs at discharge and at that time CM will continue to be in touch as the patients care progresses.
[2021-09-02] MEDS ORDERED: REMICADE 1100 MG/VIA IV (13:21)
--- NOTE | 2021-09-02 15:31 | NUR ---
recently back to bed with assistance of physical therapy. requesting eye drops for her dry eyes and stating her vision is worse than her normal vision.
[2021-09-03] VITALS (7 sets, daily range): BP systolic 102–174; BP diastolic 43–71
[2021-09-03 08:32] LABS: HEMATOCRIT 33.9 % (37.0-47.0); HEMOGLOBIN 11.2 gm/dL (12.0-15.0); MCH 30.4 pg (26.0-34.0); MCHC 33.2 g/dL (28.0-37.0); MCV 91.7 fL (80.0-100.0); RBC 3.69 mil/uL (4.20-5.00); RDW 14.3 % (10.5-14.5); WBC 9.8 thou/uL (4.0-11.0)
[2021-09-03 08:46] LABS: ALBUMIN 2.6 g/dL (3.4-5.0); CREATININE 0.8 mg/dL (0.6-1.0); PHOSPHORUS 2.8 mg/dL (2.6-4.7); POTASSIUM 4.2 mmol/L (3.5-5.1)
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
--- NOTE | 2021-09-03 11:45 | NUR ---
when assisting pt, rn discovered numerous pills in her bed. immediately notified GÓME[facility] B[facility] ICU Chg Nurse and Micyk Willard RN, cable worker helper. discovered additional loose pills in her purse, pill bottle and nasal spray. pt informed medications were to go to pharmacy for safe keeping, then would be available upon her discharge. medication placed in Home Meds Medication Bag and was picked up by jeannie Oviedo. report a
--- NOTE | 2021-09-03 11:50 | HC ---
[facility] [place] [address] CONSULTATION Name: ALEK WANG Room #: [facility] IN M.R.#: [id number] Admission: 09/02/21 Attend Phys: Nicholas Blair Discharge: Date of : 51 Report #: [id number] THIS REPORT FOR: cc: Sierra Hernandez Christine L. DO Barry, Joseph W. MD ~ DATE OF SERVICE: 09/02/2021 INFECTIOUS DISEASE CONSULTATION ATTENDING PHYSICIAN: Dr. Shah. REASON FOR EVALUATION: Sepsis, complicated urinary tract infection, perhaps pneumonitis as well. HISTORY OF PRESENT SUBJECTIVE: Chart reviewed. The patient examined. This is a 66-year-old woman with fairly extensive medical history, has underlying pulmonary fibrosis requiring supplemental oxygen 3 liters per nasal cannula, muscular dystrophy, rheumatoid arthritis for which she receives intermittent doses of IV biologic who actually lives by herself. Apparently, she was progressively weak and fatigued. It is not clear that she had actually focal signs or symptoms, or subsequent underlying chronic pain as well. On questioning, denies any particular fevers, chills. She was evaluated and was found to be hypotensive, given fluid, did require pressor support and transfusion of packed red cells due to low hemoglobin. Additional evaluation noted negative coronavirus testing. Lactic acid was 0.6. Procalcitonin 0.31. Urinalysis did show moderate pyuria 15-25 white cells, 10-30 bacteria. ABGs showed pH 7.292, pCO2 of 53.2, and pO2 of 98.8 on 3 liters. Chest x-ray does show changes described as patchy infiltrates. Blood cultures collected at time of sterile thus far. Due to her hemodynamic instability, she was transferred to the intensive care unit where she is currently off pressor support, maintained on 3 liters, had been given empiric treatment with cefepime and vancomycin. ALLERGIES: INCLUDE FENTANYL. CURRENT MEDICATIONS: Include vancomycin, cefepime, guaifenesin, morphine, pantoprazole, ipratropium and albuterol inhaler. PAST MEDICAL HISTORY: As described above, rheumatoid arthritis, previous bladder removal with urostomy, colon resection, reflux, asthma, muscular dystrophy, hypertension, anemia, Sjogren's, Raynaud's, depression, anxiety, hypothyroidism, O2 requiring lung disease. SOCIAL HISTORY: Nonsmoker, no ethanol, no illicit drug use. FAMILY HISTORY: Noncontributory. [address] [address] CONSULTATION Name: FELIPEALEKBHANU LIZARRAGA Room #: 247-P [facility] IN M.R.#: [id number] Admission: 09/02/21 Attend Phys: Nicholas Blair Discharge: Date of : 51 Report #: [id number] REVIEW OF SYSTEMS: Otherwise, limited to the exception of the above. PHYSICAL EXAMINATION: GENERAL: She is alert, fairly animated, sitting in the chair, feeding herself, mild to moderate distress. She is chronically ill-appearing and undernourished. VITAL SIGNS: Afebrile, blood pressure 140/71. SKIN: Warm, dry, no rashes. HEENT: Normocephalic. Extraocular muscles intact. Nasal cannula in place. Teeth in moderate disrepair. NECK: Supple. LUNGS: Wheezes. Few scattered coarse breath sounds. HEART: Regular. I do not appreciate a murmur. ABDOMEN: Slightly distended, mildly firm, nontender. EXTREMITIES: No cyanosis. GENITOURINARY AND RECTAL: Deferred. LABORATORY DATA: MRSA surveillance was negative. Ferritin 152. Vitamin B12 76. Electrolytes: Sodium 138, potassium 4.7, chloride 105, bicarbonate 26, anion gap of 7, BUN and creatinine 33 and 1.3, glucose is 92, estimated GFR 41. CBC: White count of 15.0, H 10.6 up from 7.1 post-transfusion. Platelet count of 112. Blood cultures sterile thus far. Chest x-ray as described above. CT of the head, no acute process. Sed rate of 45. CRP of 175.6. BNP of 2356. Electrolytes: Sodium 136, potassium 4.3, chloride 101, bicarbonate is 28, anion gap of 7, BUN and creatinine 37 and 1.7. LFTs unremarkable. Albumin of 29, total protein 6.7. ASSESSMENT AND PLAN: 1. Sepsis, likely secondary to complicated urinary tract infection, may have secondary pneumonitis as well. We will continue broad-spectrum therapy. I think she has got reasonable coverage at this point. She seems to have responded with initial resuscitative efforts including fluid and transfusion of packed red cells. At this point, I do not have any positive culture results. I am not particularly hopeful she will be able to expectorate some sputum for culture. Await urine and blood cultures. She certainly remains tenuous at this point. Continue to monitor expectantly. <ELECTRONICALLY SIGNED> By: Buddy Hubbard MD 09/03/21 1150 121 21 Buddy Hubbard MD /nt
--- NOTE | 2021-09-03 13:40 | NUR ---
ASSUMED PT CARE UPON TRANSFER TO UNIT APPROXIMATELY 1230. PATIENT IS A&OX3-4, AND ABLE TO MAKE NEEDS KNOWN. IV NURSE INFUSED CATHFLO FOR THIS PATIENT. FALL PRECAUTIONS ARE IN PLACE, CALL LIGHT WITHIN REACH.
[2021-09-04 03:04] LABS: ABSOLUTE NEUTROPHILS 8.2 thou/uL (1.4-8.2); BASOPHILS 0.1 % (0.0-2.0); HEMOGLOBIN 11.3 gm/dL (12.0-15.0); LYMPHOCYTES 8.1 % (24.0-44.0); MCH 30.1 pg (26.0-34.0); MCHC 33.2 g/dL (28.0-37.0); MCV 90.7 fL (80.0-100.0); MONOCYTES 7.8 % (1.0-8.0); PLATELET COUNT 145 thou/uL (150-400); RBC 3.75 mil/uL (4.20-5.00); RDW 13.7 % (10.5-14.5); WBC 9.7 thou/uL (4.0-11.0)
[2021-09-04 03:12] LABS: ALBUMIN 2.6 g/dL (3.4-5.0); CALCIUM 8.7 mg/dL (8.5-10.1); CREATININE 0.7 mg/dL (0.6-1.0); PHOSPHORUS 3.1 mg/dL (2.5-4.9); POTASSIUM 3.4 mmol/L (3.5-5.1)
--- NOTE | 2021-09-04 04:11 | NUR ---
PATIENT AOX4 MAKES NEEDS KNOWN. PATIENT C/O GERD CALLED [facility] NEW ORDER OF PROTONIX. PATIENT ON 3L OF OXYGEN NO SOA OR RISTRESS NOTED. VANCO TROUGH WAS DRAWN ON 229 LAB DIDNT SEE THE ORDER, RUN VANCO AT THIS TIME. CALLED PHARMACY WITH VANCO TROUGH IS 4L. PHARMACY WILL ADJUST THE DOSE. PATIENT C/O INCREASED PAIN CALLED [facility] NO NEW ORDERS PER DR. HEMPHILL, PATIENT NOTIFIED. PATIENT NEEDS MINIMUM ASSISTANCE WITH ADL, BED MOBILITY, TRANSFER. PATIENT HAS UROSTOMY. PATIENT IN BED ASLEEP AT THIS TIME BREATHING REGULAR AND UNLABOURED.
[2021-09-04 07:25] VITALS: BP 130/99
[2021-09-04 11:42] VITALS: BP 130/99
[2021-09-04] MEDS ORDERED: IPRAT-ALBUT 0.5-3 ML INH (12:13)
[2021-09-04] MEDS ORDERED: TRAMADOL 50 MG50 MG PO (12:13)
[2021-09-04] MEDS ORDERED: PILOCARPINE HCL5 M1 PO (12:13)
[2021-09-04] MEDS ORDERED: PROTONIX40 M2 PO (12:13)
[2021-09-04] MEDS ORDERED: CEFDINIR300 MG PO (12:16)
--- NOTE | 2021-09-04 12:27 | NUR ---
CM SPOKE WITH LEONORA NURSE LIAISON WITH [facility] AND SHE INDICATED THAT EQUIPTMENT HAD BEEN DELIVERED TO PT'S APT THIS AM (O2 AND A BEDSIE TABLE.) CM MET WITH PT AT BEDS AND INDICATED THAT ABOVE AND THAT ONCE ORDERS ARE ENTERED WE CAN ARRANGE TRANSPORT HOME. PT INDICTED SHE DIDN'T NEED/WANT TRANSPORT ARRAGNED THAT SHE WANTED HER [facility] TO COME PICK HER UP. CM CALLED PT'S NIECE MARY LOU AND SHE INDICATED THAT WOULD BE FINE. CM UPDATED HOSPICE. PT AND DOC COMPLETED OUTSIDE HOSPITAL DNR. CM TO FAX ORDERS TO HOSPICE AND NOTIFY FAMILY THAT PT IS DC READY. NO OTHER CM INTERVENTION INDICATED. CASE CLOSED.
[2021-09-04 15:11] VITALS: BP 130/99
--- NOTE | 2021-09-04 16:54 | NUR ---
Assumed pt care at 7am.Pt in bed resting and very excited about going home. Assessment completed.vss. Pt c/o generalized pain. Tramadol given twice this shift with relief.Dr Miller rounded on pt and dc order noted.Dc summary compile and discussed with pt. Port deactivate and saline lock dc'd. At 1700, pt dc'd home per non emergency ambulance.
== END 2021-09-04 18:17 | disposition hospice, home (50) | DRG 871 ==
LOC: ER 23:26 → ICU 09-02 01:27 → EROBS 09-02 01:27 → ICU 09-02 04:09 → 4W 09-03 12:32
PROVIDERS: Emergency Medicine; Nurse Practitioner Family; ADMIT Hospitalist; ATTEND Hospitalist
PROC: 30233N1 Transfusion of Nonautologous Red Blood Cells into Peripheral Vein, Percutaneous Approach (ICD-10-PCS; principal; 2021-09-02)
DX: A41.9 Sepsis, unspecified organism (principal); J18.9 Pneumonia, unspecified organism; G92.9 Unspecified toxic encephalopathy; D62 Acute posthemorrhagic anemia; N17.9 Acute kidney failure, unspecified; G45.9 Transient cerebral ischemic attack, unspecified; K92.2 Gastrointestinal hemorrhage, unspecified; J96.10 Chronic respiratory failure, unspecified whether with hypoxia or hypercapnia; T40.601A Poisoning by unspecified narcotics, accidental (unintentional), initial encounter; D69.6 Thrombocytopenia, unspecified; M06.9 Rheumatoid arthritis, unspecified; K21.9 Gastro-esophageal reflux disease without esophagitis; J45.909 Unspecified asthma, uncomplicated; E03.9 Hypothyroidism, unspecified; F32.9 Major depressive disorder, single episode, unspecified; F41.9 Anxiety disorder, unspecified; I95.9 Hypotension, unspecified; E86.0 Dehydration; J84.10 Pulmonary fibrosis, unspecified; M35.00 Sjogren syndrome, unspecified; I73.00 Raynaud's syndrome without gangrene; N31.9 Neuromuscular dysfunction of bladder, unspecified; G89.4 Chronic pain syndrome; G71.00 Muscular dystrophy, unspecified; K59.00 Constipation, unspecified; Z79.899 Other long term (current) drug therapy; Z90.710 Acquired absence of both cervix and uterus; Z86.73 Personal history of transient ischemic attack (TIA), and cerebral infarction without residual deficits; Z88.8 Allergy status to other drugs, medicaments and biological substances; Z91.02 Food additives allergy status; Z79.1 Long term (current) use of non-steroidal anti-inflammatories (NSAID); Y92.89 Other specified places as the place of occurrence of the external cause; Z20.822 Contact with and (suspected) exposure to COVID-19
CPT/HCPCS: 10040; 10045; 10078